=== PATIENT | female | born 2000 ===

== ENCOUNTER 2023-04-09 14:17 | Emergency (ER) | payer SELFPAY ==
[2023-04-09 14:25] VITALS: BP 121/73; PULSE 92; RESP 17; TEMP 99.4; BMI 25.4
[2023-04-09 16:57] LABS: URINE APPEARANCE CLEAR; URINE BILIRUBIN NEGATIVE (NEGATIVE); URINE COLOR YELLOW; URINE GLUCOSE (UA) NEGATIVE (NEGATIVE); URINE KETONE 1+ (NEGATIVE); URINE LEUK ESTERASE NEGATIVE (NEGATIVE); URINE NITRITE NEGATIVE (NEGATIVE); URINE PROTEIN NEGATIVE (NEGATIVE)
[2023-04-09 17:10] LABS: HCG,QUALITATIVE URINE Negative
== END 2023-04-09 18:45 | disposition home or self-care (01) ==
LOC: JER 14:17
DX: R11.2 Nausea with vomiting, unspecified (principal); R10.84 Generalized abdominal pain; R55 Syncope and collapse; U07.1 COVID-19
CPT/HCPCS: 0241U-QW; 81003; 84703; 87086; 93005; 93010; 99284-25